=== PATIENT | male | born 1980 | race Caucasian/White ===

== ENCOUNTER 2016-11-09 21:49 | Emergency (ER) | payer MEDICAID, OTHER ==
[2016-11-09 22:00] VITALS: BP 128/77
--- NOTE | 2016-11-09 22:04 | UC ---
Skin Complaint HPI - HPI Summary HPI Summary: pt presents with c/o possible "spider bite" to right lower anterior leg. Pt reports that the "bite" is "very itchy" and that it is spreading. Pt thinks he was bitten 5-6 days ago - History of Current Complaint Time Seen by Provider: 11/09/16 21:49 Stated Complaint: RIGHT LOWER LEG INSECT BITE Hx Obtained From: Patient Onset/Duration: Sudden Onset, Lasting Days Skin Exposure Onset/Duration: Days Ago - 5-6 days Timing: Constant Onset Severity: Mild Current Severity: Mild Location: Discrete - right anterior lateral lower leg Character: Pruritus, Redness Aggravating: Touch Alleviating: Nothing Associated Signs & Symptoms: Positive: Rash, Drainage - clear, Tenderness Related History: Insect Bite/Sting - Allergy/Home Medications Allergies/Adverse Reactions: Allergies Allergy/AdvReac Type Severity Reaction Status Date / Time No Known Allergies Allergy Verified 11/09/16 22:00 Review of Systems Constitutional: Negative Skin: Rash - right lower leg, anterior lateral Eyes: Negative ENT: Negative Respiratory: Negative Cardiovascular: Negative Gastrointestinal: Negative Genitourinary: Negative Motor: Negative Neurovascular: Negative Musculoskeletal: Negative Neurological: Negative Psychological: Negative All Other Systems Reviewed And Are Negative: Yes PMH/Surg Hx/FS Hx/Imm Hx Previously Healthy: Yes - Surgical History Surgical History: Yes Surgery Procedure, Year, and Place: Left Ankle Reconstructions. Appendectomy - Family History Known Family History: Positive: Cardiac Disease - Social History Occupation: Employed Full-time Lives: With Family Substance Use Type: Marijuana Have You Smoked in the Last Year: Yes - marijuana Physical Exam Triage Information Reviewed: Yes Appearance: Well-Appearing Vital Signs Reviewed: Yes Eye Exam: Normal ENT Exam: Normal Respiratory Exam: Normal Respiratory: Positive: No respiratory distress Musculoskeletal Exam: Normal Neurological Exam: Normal Psychological Exam: Normal Skin Exam: Other - 2 cm diameter erythematous, dry crusted, Skin: Positive: rashes - right lateral anterior lower leg Course/Dx - Differential Diagnoses - Skin Complaint Differential Diagnoses: Cellulitis, Impetigo, MRSA - Diagnoses Provider Diagnoses: cellulitis. insect bite Discharge - Discharge Plan Condition: Stable Disposition: HOME Prescriptions: Cephalexin CAP* [Keflex 500 CAP*] 500 mg PO Q12H #10 cap Patient Education Materials: Cellulitis (ED), Insect Bite or Sting (ED) Referrals: Wayne,Brittany, PA [Primary Care Provider] - If Needed
[2016-11-09] MEDS ORDERED: Cephalexin CAP* 500 MG PO ONE (22:05)
== END 2016-11-09 22:13 | disposition home or self-care (01) ==
LOC: UCCORT 21:49
DX: S80.861A Insect bite (nonvenomous), right lower leg, initial encounter (principal); F12.90 Cannabis use, unspecified, uncomplicated; L03.115 Cellulitis of right lower limb; W57.XXXA Bitten or stung by nonvenomous insect and other nonvenomous arthropods, initial encounter
CPT/HCPCS: 99202; A9270-GY; G0463